=== PATIENT | female | born 1965 | race Caucasian/White ===

== ENCOUNTER 2019-10-11 11:40 | Emergency (ER) | payer MEDICAID ==
[~2019-10-11] VITALS: Ht 165.1 cm; Wt 66.0 kg
[2019-10-11 11:44] VITALS: BP 140/86
== END 2019-10-11 13:07 | disposition home or self-care (01) ==
LOC: ED 12:30
DX: J20.9 Acute bronchitis, unspecified (principal); J30.2 Other seasonal allergic rhinitis; F17.200 Nicotine dependence, unspecified, uncomplicated
CPT/HCPCS: 71045; 99283